=== PATIENT | female | born 1955 | race Caucasian/White ===

== ENCOUNTER 2018-12-28 09:08 | Inpatient (IN) | payer OTHER ==
[2018-12-28] VITALS (42 sets, daily range): BP systolic 61–109; BP diastolic 23–63
[~2018-12-28] VITALS: Ht 162.6 cm; Wt 88.1 kg
--- NOTE | ~2018-12-28 | CON ---
[address] [address] CONSULTATION Name: LAWRENCE JIMENEZ Room: [address] IN .R.#: [id number] Admission: 12/28/18 Attend Phys: Celia Rosen Discharge: Date of : 51 Report #: [id number] THIS REPORT FOR: //name// CC: DORETHA physician/PCP Annamarie Cevallos DATE OF SERVICE: 12/29/2018 REASON FOR CONSULTATION: Anemia and melanotic stool. HISTORY OF PRESENT ILLNESS: This is a 63-year-old female who presented to hospital with dizziness and low blood pressures. The patient recently has changed her blood pressure medications. She was found to be very anemic with hemoglobin of 7 and required 1 unit of packed RBC, which increases her hemoglobin to 8.4. The patient reports that her problems began when she fell and fractured her hip. Since then, she has had problem with constipation followed by diarrhea. She reports that her stool has been darkish brown, but denies any hematochezia. She also denies any nausea or vomiting, but reports that she occasionally takes TUMS for GERD type symptoms. PAST MEDICAL HISTORY: Significant for recent history of hip fracture, hypertension, hyperlipidemia, gallbladder disease, status post cholecystectomy at age 18, adhesiolysis, and hypotension. ALLERGIES: SIGNIFICANT TO PENICILLIN G AND CODEINE. MEDICATIONS: Please refer to MAR. SOCIAL HISTORY: The patient lives at home. She denies tobacco or alcohol use. FAMILY HISTORY: Noncontributory. PHYSICAL EXAMINATION: VITAL SIGNS: Reveals blood pressure of 118/62, respiration is 13, pulse 88, temperature 98.9. LUNGS: Clear. CARDIOVASCULAR: Regular. ABDOMEN: Soft, mildly tender to palpation in the lower quadrants. Bowel sounds are positive. NEUROLOGIC: The patient is alert and oriented x 3. Note that the patient is on pressors. LABORATORY DATA: Reveals sodium of 134, potassium 4.4, BUN is 50, creatinine is 3.3, glucose 143, total bilirubin is 1.1, magnesium is 1.2, ALT is 18. Iron saturation is 7, TIBC is 204. B12 is 2198. WBC is 24,000, hemoglobin is 8.4, platelet is 176. UA is positive [place] [address] CONSULTATION Name: LAWRENCE JIMENEZ Kyle Room: [address] IN [facility]#: [id number] Admission: 12/28/18 Attend Phys: Celia Rosen Discharge: Date of : 51 Report #: [id number] IMAGING: Renal ultrasound was obtained, which showed to be unremarkable. ASSESSMENT AND PLAN: The patient with hypotension, leukocytosis and sepsis, who is on antibiotics and pressors. She was found to be anemic and reports dark stool for the past several days. I will consider upper scope to rule out gastroduodenal ulcer. She has never had a colonoscopy; therefore, if her upper GI is negative, we will consider colonoscopy to follow. Meanwhile, we will continue her Protonix drip and monitor her hemoglobin and hematocrit. By: 1231 [id number] Zapata MD /nt
--- NOTE | ~2018-12-28 | PROC ---
[address] [address] PROCEDURE REPORT Name: LAWRENCE JIMENEZ Room: [address] IN .R.#: [id number] Admission: 12/28/18 Attend Phys: Celia Rosen Discharge: Date of : 51 Report #: [id number] THIS REPORT FOR: //name// For GI report, please see the Provation report in Perceptive 7 content. By: 0645Medical Records Staff GOMEZ /GRZEGORZ
[~2018-12-28 09:08] MED LIST: BACTRIM DS TAB1 EACH PO; BENADRYL25 MG PO; ELIMITE60 GM TP; LOPRESSOR25 PO; MUCINEX600 MG PO; TRIAMCINOLONE A80 G2 TOP
--- NOTE | 2018-12-28 09:45 | NUR ---
STRAIGHT CATH PT VIA STERILE PROCEDURE FOR STERILE UA SPECIMEN, PT HERMES WELL
[2018-12-28 09:46] LABS: HEMATOCRIT 21.5 % (37.0-47.0); MCH 27.1 pg (26.0-34.0); MCHC 32.5 g/dL (28.0-37.0); MCV 83.5 fL (80.0-100.0); NUCLEATED RBCS 0 /100WBC; PLATELET COUNT* 112 thou/uL (150-400); RBC 2.58 mil/uL (4.20-5.00); RDW-CV 19.2 % (10.5-14.5); WBC 2.9 thou/uL (4.0-11.0)
[2018-12-28 09:47] LABS: URINE BLOOD NEGATIVE (Negative); URINE CLARITY SL CLOUDY; URINE COLOR BROWN; URINE GLUCOSE-RANDOM NEGATIVE (Negative); URINE KETONES TRACE (Negative); URINE LEUKOCYTES-REFLEX TRACE (Negative); URINE NITRITE-REFLEX NEGATIVE (Negative); URINE PROTEIN 1+ (Negative); URINE SPECIFIC GRAVITY >= 1.030 (1.005-1.030); URINE UROBILINOGEN 0.2 E.U./dl (0.2-1.0)
[2018-12-28 09:50] LABS: APTT 33.6 Seconds (25.0-31.3); INR 1.5; PROTIME 14.8 Seconds (9.20-11.50)
[2018-12-28 09:51] LABS: ICTOTEST (BILI CONFIRMATORY) Negative (Negative); URINE BILIRUBIN 2+ (Negative)
[2018-12-28 09:53] LABS: CALCIUM 8.7 mg/dL (8.5-10.1); CREATININE 4.1 mg/dL (0.6-1.3); POTASSIUM 3.4 mmol/L (3.5-5.1)
[2018-12-28 09:59] LABS: ALBUMIN 2.2 g/dL (3.4-5.0); TOTAL BILIRUBIN 1.1 mg/dL (<0.1-1.0); TOTAL PROTEIN 7.3 g/dL (6.4-8.2)
[2018-12-28 10:06] LABS: SQUAMOUS >10 Many /LPF (0-3)
[2018-12-28 10:07] LABS: AMORPHOUS URATES Moderate /LPF (None Seen); BACTERIA-REFLEX 1-9 Few /HPF (None Seen); CASTS None Seen /LPF (None Seen); MUCUS 4-6 Moderate strn/LPF (None Seen); URINE RBC 0-2 Rare /HPF (0-2)
[2018-12-28 10:52] LABS: ABSOLUTE LYMPHOCYTES 0.1 thou/uL (0.8-5.3); ABSOLUTE MONOCYTES 0.2 thou/uL (0.0-1.2); ABSOLUTE NEUTROPHILS 2.7 thou/uL (1.6-8.1); PLATELET ESTIMATE DECREASED
[2018-12-28 10:53] LABS: ANISOCYTOSIS 1+; HYPOCHROMASIA 1+; OVALOCYTES 1+; POIKILOCYTOSIS 1+; TOXIC GRANULATION 1+
--- NOTE | 2018-12-28 11:46 | NUR ---
AT 1045 PICC TRIPLE LUMEN PLACED PER PICC TEAM, PT TOLERATED WELL
--- NOTE | 2018-12-28 12:08 | NUR ---
PT ADMITTED TO ICU BED 2. PT ON LEVOPHED GTT AT 9 MG/HR. PROTONIX GTT AT 8 MG/HR. PT AOX4, VSS ON LEVOPHED. BG 94.
--- NOTE | 2018-12-28 14:32 | NUR ---
RIGHT BASIILIC VESSEL ACCESSED FOR 5 [place] TRIPLE LU8MEN PICC. LINE PRE-TRIMMED TO 38CM AND ADVANCED TO THE ZERO FRED WITH NO RESISTANCE MET. UPPER ARM CIRCUMFERENCE ABOVE INERTION SITE = 11". SHERLOCK MAGNET AND 3CG CONFIRMATION OF TIP TERMINATION AT THE CAVOATRIAL JUNCTION APPRECIATED. STYLET REMOVED, LINE FLUSHED AND INSERTION SITE DRESSED. REPORT GIVEN TO ALICIA BAUTISTA.
--- NOTE | 2018-12-28 14:39 | NUR ---
PT C/O MIGRAINE, STATES SHE GETS MIGRAINES AT HOME QUITE OFTEN. PT REQUESTING SOMETHING FOR THIS WELL SOME BREATHING TREATMENTS FOR WHEEZING, STATES SHE USES INHALER AT HOME.
--- NOTE | 2018-12-28 15:52 | EKG ---
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: andrade : 1955 Requested By: Constantin Kellogg Order Number: [id number] MD: Umberto Bangura Measurements Intervals [place] Rate: 86 P: 24 ND: 113 QRS: 51 QRSD: 106 T: 41 QT: 379 QTc: 454 Interpretive Statements Sinus rhythm Borderline short ND interval Borderline ST elevation, lateral leads No previous ECG available for comparison Electronically Signed On 12-28-2018 15:51:46 GAS CHARGER by Umberto Bangura [email or web address] <ELECTRONICALLY SIGNED> By: Umberto Bangura MD, [facility] 12/28/18 1551 6 6 Umberto Bangura MD, FAC /EPI
[2018-12-28 17:02] LABS: URINE BLOOD NEGATIVE (Negative); URINE CLARITY CLOUDY; URINE COLOR DARK YELLOW; URINE GLUCOSE-RANDOM NEGATIVE (Negative); URINE KETONES TRACE (Negative); URINE LEUKOCYTES TRACE (Negative); URINE NITRITE POSITIVE (Negative); URINE PROTEIN 2+ (Negative); URINE SPECIFIC GRAVITY >= 1.030 (1.005-1.030); URINE UROBILINOGEN 0.2 E.U./dl (0.2-1.0)
[2018-12-28 17:04] LABS: ICTOTEST (BILI CONFIRMATORY) Negative (Negative); URINE BILIRUBIN 1+ (Negative)
[2018-12-28 17:06] LABS: SQUAMOUS >10 Many /LPF (0-3)
[2018-12-28 17:07] LABS: BACTERIA >30 Many /HPF (None Seen); HYALINE CASTS 4-10 Moderate /LPF (None Seen); MUCUS >6 Heavy strn/LPF (None Seen); URINE RBC None Seen /HPF (0-2); URINE WBC 0-5 Rare /HPF (0-5)
[2018-12-28 17:08] LABS: AMORPHOUS URATES Moderate /LPF (None Seen); CRYSTALS None Seen /LPF (None Seen)
[2018-12-28 18:30] LABS: HEMATOCRIT 23.6 % (37.0-47.0); HEMOGLOBIN 7.8 gm/dL (12.0-15.0)
[2018-12-29] VITALS (78 sets, daily range): BP systolic 89–142; BP diastolic 29–86
[2018-12-29 04:35] LABS: HEMATOCRIT 26.5 % (37.0-47.0); HEMOGLOBIN 8.4 gm/dL (12.0-15.0); MCH 26.5 pg (26.0-34.0); MCHC 31.6 g/dL (28.0-37.0); MPV 9.5 fl. (7.2-11.1); RBC 3.16 mil/uL (4.20-5.00); RDW-CV 18.5 % (10.5-14.5)
[2018-12-29 04:50] LABS: WBC 24.4 thou/uL (4.0-11.0)
[2018-12-29 05:14] LABS: ALBUMIN 1.8 g/dL (3.4-5.0); CREATININE 3.3 mg/dL (0.6-1.3); MAGNESIUM 1.2 mg/dL (1.8-2.4); TOTAL BILIRUBIN 1.1 mg/dL (<0.1-1.0); TOTAL PROTEIN 6.6 g/dL (6.4-8.2)
[2018-12-29 05:19] LABS: POTASSIUM 4.4 mmol/L (3.5-5.1)
--- NOTE | 2018-12-29 06:03 | NUR ---
VITALS STABLE, AFEBRILE. PT DENIES PAIN, SLEPT THROUGH MOST OF THE NIGHT. 250 CC, TEA COLORED UOP. NO BM THIS EVENING. ABLE TO TITRATE VASOPRESSIN OFF AND LEVOPHED DOWN TO 20 MCG/MIN. PT REMAINS ON 2L PER NC, MOSTLY FOR COMFORT. OTHERWISE UNEVENTFUL NIGHT. CALL LIGHT WITHIN REACH.
--- NOTE | 2018-12-29 17:59 | NUR ---
ASSESSMENTS CHARTED. PATIENT REMAINS ON LEVOPHED DURING SHIFT. CURRENTLY TITRATED DOWN TO 17. BP HOLDING STABLE. GI SAW PATIENT TODAY, EGD SCHEDULED FOR AM TO DETERMINE IF PATIENT IS HAVING GI BLEED. NO S/S OF BLEEDING EXHIBITED DURING THIS SHIFT. PATIENT IS EATING 100% OF ALL MEALS, WILL BE NPO AFTER MIDNIGHT. DISCUSSED WITH PATIENT AT BEDSIDE AND SHE IS AWARE AND AGREES TO THE PROCEDURE.
[2018-12-30] VITALS (23 sets, daily range): BP systolic 106–140; BP diastolic 49–76
[2018-12-30 03:47] LABS: HEMATOCRIT 23.2 % (37.0-47.0); HEMOGLOBIN 7.6 gm/dL (12.0-15.0); MCH 27.2 pg (26.0-34.0); MCHC 32.6 g/dL (28.0-37.0); MCV 83.6 fL (80.0-100.0); RBC 2.78 mil/uL (4.20-5.00); RDW-CV 18.9 % (10.5-14.5)
[2018-12-30 04:22] LABS: WBC 9.3 thou/uL (4.0-11.0)
[2018-12-30 04:52] LABS: ALBUMIN 1.5 g/dL (3.4-5.0); CALCIUM 7.8 mg/dL (8.5-10.1); CREATININE 2.2 mg/dL (0.6-1.3); MAGNESIUM 1.6 mg/dL (1.8-2.4); POTASSIUM 3.2 mmol/L (3.5-5.1); TOTAL BILIRUBIN 0.6 mg/dL (<0.1-1.0); TOTAL PROTEIN 6.2 g/dL (6.4-8.2)
--- NOTE | 2018-12-30 04:56 | NUR ---
VITALS STABLE, AFEBRILE. PT SLEPT ON AND OFF THROUGH THE NIGHT. COMPLAINS OF ABDOMINAL PAIN AND HEADACHE. NO BM, UOP 900 CC. NPO AFTER MIDNIGHT. PT COMPLAINS OF LEFT ANKLE/LEG PAIN, REPORTS SHE FELL ON IT WHEN SHE FELL IN SEPTEMBER BUT HAS SINCE GOTTEN AN XRAY OF IT AND IT WAS OK. PASSIVE RANGE OF MOTION PROVIDED, BUT PATIENT IN PAIN AND UNABLE TO BEND HER LEG WITHOUT PAIN. ABLE TO MOVE RIGHT LEG WITH NO PROBLEM. SCD TAKEN OFF LEFT LEG PER HER REQUEST, WILL PASS THIS INFORMATION ALONG AND FOLLOW UP WITH THE PROVIDER. OTHERWISE UNEVENTFUL NIGHT. FREQUENT TURNS FOR SKIN INTEGRITY. CALL LIGHT WITHIN REACH.
[2018-12-30 08:23] LABS: HEMATOCRIT 20.8 % (37.0-47.0); MCH 27.4 pg (26.0-34.0); MCHC 33.1 g/dL (28.0-37.0); MCV 82.9 fL (80.0-100.0); MPV 8.4 fl. (7.2-11.1); RBC 2.51 mil/uL (4.20-5.00); RDW-CV 18.5 % (10.5-14.5); WBC 5.5 thou/uL (4.0-11.0)
[2018-12-30 08:34] LABS: HEMOGLOBIN 6.9 gm/dL (12.0-15.0)
--- NOTE | 2018-12-30 09:42 | NUR ---
patient off unit to GI lab for EGD at 0942.
[2018-12-30 09:44] LABS: HEMATOCRIT 20.8 % (37.0-47.0); MCH 27.4 pg (26.0-34.0); MCHC 32.8 g/dL (28.0-37.0); MCV 83.5 fL (80.0-100.0); MPV 9.5 fl. (7.2-11.1); RBC 2.49 mil/uL (4.20-5.00); RDW-CV 18.7 % (10.5-14.5)
[2018-12-30 09:46] LABS: HEMOGLOBIN 6.8 gm/dL (12.0-15.0); PLATELET COUNT* 46 thou/uL (150-400)
[2018-12-30 12:30] LABS: ALBUMIN 1.4 g/dL (3.4-5.0); DIRECT BILIRUBIN 0.4 mg/dL (<0.1-0.3); TOTAL BILIRUBIN 0.6 mg/dL (<0.1-1.0)
--- NOTE | 2018-12-30 14:09 | CON ---
[address] [address] CONSULTATION Name: LAWRENCE JIMENEZ Room: [address] IN .R.#: [id number] Admission: 12/28/18 Attend Phys: Celia Rosen Discharge: Date of : 51 Report #: [id number] THIS REPORT FOR: //name// CC: DORETHA physician/PCP Annamarie Cevallos DATE OF SERVICE: 12/29/2018 CONSULTING PHYSICIAN: Dr. Cevallos REASON FOR CONSULTATION: Acute kidney injury. HISTORY OF PRESENT ILLNESS: This is a 63-year-old female with no preexisting history of kidney disease, who was admitted with low blood pressure and sepsis. She was started on pressors and given IV fluids. She was found to be anemic and was transfused a unit of packed red blood cells. She is feeling better now. She does not have any complaints at present time. She does tell me that she takes regular NSAIDs. She is also on lisinopril and hydrochlorothiazide as well. REVIEW OF SYSTEMS: Constitutional, psych, heme, eyes, ENT, respiratory, cardiac, GI, , and endocrine are all negative except as documented above. SOCIAL HISTORY: Positive for tobacco use. FAMILY HISTORY: Sister had kidney problems. CURRENT MEDICATIONS: Reviewed. PAST MEDICAL HISTORY: Hypertension, dyslipidemia, and history of cholecystectomy. PHYSICAL EXAMINATION: VITAL SIGNS: Blood pressure 118/62, pulse 88, respirations 13, and temperature 37.2. GENERAL: No acute distress. EYES: Open. EARS: Externally normal. NECK: Supple. CARDIOVASCULAR: Regular rate. LUNGS: No crackles. ABDOMEN: Soft. MUSCULOSKELETAL: Nontender. PSYCHIATRIC: Awake and alert. LABORATORY DATA: White cell count 24, hemoglobin 8.4, and [place] [address] CONSULTATION Name: LAWRENCE JIMENEZ Room: [address] IN [facility]#: [id number] Admission: 12/28/18 Attend Phys: Celia Rosen Discharge: Date of : 51 Report #: [id number] Sodium 134, potassium 4.4, chloride 104, bicarbonate 20, BUN 50, creatinine 3.3, glucose 143, calcium 8, magnesium 1.2, and albumin 1.8. ASSESSMENT: 1. Acute kidney injury in the setting of hypotension, anemia, and a creatinine of 4.1 on admission. Baseline creatinine unknown. UA noted. Ultrasound, no acute findings. She was on Bactrim as an outpatient. This is also in the setting of sepsis. 2. Hypoalbuminemia with an albumin of 1.8. 3. Anemia with a concern for gastrointestinal bleed. Hemoglobin was 7 on admission. She was transfused one unit of packed red blood cells on 12/28/2018. 4. Shock. PLAN: 1. Creatinine is improving. Continue supportive measures including IV fluids and Levophed. 2. Hypomagnesemia. Magnesium was given earlier. 3. UA was noted. Kidney ultrasound did not reveal any acute findings. I expect that renal function will continue to improve but baseline is uncertain. Lisinopril, hydrochlorothiazide, and NSAIDs have all been stopped. We will check lab again in the a.m. and follow along with you. Thank you for requesting my opinion in the care and management of this patient. <ELECTRONICALLY SIGNED> By: Montana Marrero MD 12/30/18 1409 1423 1850Montana Marrero MD /nt
[2018-12-30 15:42] LABS: % SATURATION 11 % (20-39); IRON 19 ug/dL (50-175)
[2018-12-30 15:50] LABS: APTT 32.8 Seconds (25.0-31.3)
[2018-12-30 16:09] LABS: ABSOLUTE EOSINOPHILS 0.2 thou/uL (0.0-0.7); ABSOLUTE LYMPHOCYTES 0.2 thou/uL (0.8-5.3); ABSOLUTE MONOCYTES 0.3 thou/uL (0.0-1.2); ABSOLUTE NEUTROPHILS 4.4 thou/uL (1.6-8.1)
[2018-12-30 16:23] LABS: ANISOCYTOSIS 1+; HYPOCHROMASIA 1+; PLATELET ESTIMATE DECREASED; POIKILOCYTOSIS Occasional
[2018-12-30 16:24] LABS: BURR CELLS Occasional; OVALOCYTES Occasional; TARGET CELLS Occasional; TEARDROPS Occasional
[2018-12-30 16:25] LABS: TOXIC GRANULATION 2+
[2018-12-30 16:38] LABS: HEMATOCRIT 23.7 % (37.0-47.0); MCH 28.2 pg (26.0-34.0); MCHC 33.8 g/dL (28.0-37.0); MCV 83.6 fL (80.0-100.0); MPV 9.2 fl. (7.2-11.1); RBC 2.83 mil/uL (4.20-5.00); RDW-CV 18.5 % (10.5-14.5); WBC 6.9 thou/uL (4.0-11.0)
[2018-12-30 16:41] LABS: POTASSIUM 3.5 mmol/L (3.5-5.1)
[2018-12-30 16:44] LABS: INR 1.2; PROTIME 12.7 Seconds (9.20-11.50)
--- NOTE | 2018-12-30 17:50 | NUR ---
ASSESSMENTS CHARTED. PATIENT RECEIVED 1 UNIT OF PACKED RED BLOOD CELLS DURING SHIFT FOR DROPPING HEMOGLOBIN. REPEAT BLOODWORK SHOWS IMPROVEMENT. PATIENT WENT FOR EGD THIS MORNING, RESULTS FROM DR WAITE SHOWS ULCERS AND ESOPHAGEAL VARICIES. PATIENT SCHEDULED TO HAVE ABDOMINAL ULTRASOUND IN THE MORNING. ELECTROLYTES REPLACED TO NORMAL VALUES TODAY. PATIENT TAKING IN LIQUID DIET WELL TOLERATED. WCTM
[2018-12-31] VITALS (17 sets, daily range): BP systolic 118–148; BP diastolic 44–73
[2018-12-31 04:48] LABS: ABSOLUTE EOSINOPHILS 0.2 thou/uL (0.0-0.7); ABSOLUTE LYMPHOCYTES 0.2 thou/uL (0.8-5.3); ABSOLUTE MONOCYTES 0.6 thou/uL (0.0-1.2); ABSOLUTE NEUTROPHILS 6.1 thou/uL (1.6-8.1); BASOPHILS 0.1 %; EOSINOPHILS 2.6 %; HEMATOCRIT 24.2 % (37.0-47.0); HEMOGLOBIN 8.2 gm/dL (12.0-15.0); LYMPHOCYTES 3.2 %; MCH 27.9 pg (26.0-34.0); MCHC 33.7 g/dL (28.0-37.0); MCV 82.6 fL (80.0-100.0); MONOCYTES 8.3 %; MPV 9.2 fl. (7.2-11.1); NUCLEATED RBCS 0 /100WBC; PLATELET COUNT* 52 thou/uL (150-400); POLYS 85.8 %; RBC 2.93 mil/uL (4.20-5.00); RDW-CV 18.6 % (10.5-14.5); WBC 7.1 thou/uL (4.0-11.0)
[2018-12-31 05:23] LABS: ALBUMIN 1.4 g/dL (3.4-5.0); CALCIUM 8.2 mg/dL (8.5-10.1); CREATININE 1.5 mg/dL (0.6-1.3); MAGNESIUM 1.7 mg/dL (1.8-2.4); POTASSIUM 3.6 mmol/L (3.5-5.1); TOTAL PROTEIN 6.3 g/dL (6.4-8.2)
--- NOTE | 2018-12-31 05:55 | NUR ---
ASSUMED CARE AT 1900H, ON RA AND TOLERATED.NO DISTRESS NOTED.KEPT NPO POST MIDNIGHT FOR LADARIUS.PT IS HALF PACK OF CIGARETTE A ADAY SMOKER AND ADVICE TO QUIT SMOKING AND USE NICOTINE PATCH.SHE AGREED FOR THE NICOTINE PATCH, TO INFORM HOSPITALIST.NO BLEEDING NOTED.LEVO OFF SINCE YESTERDAY AND NO MORE PRESSOR, BP WITHIN NORMAL LIMITS.CONTINUE MONITORING AND TOWARDS GOALS.
[2018-12-31 11:10] LABS: HEMOGLOBIN 6.9 g/dL (11.1-15.9)
--- NOTE | 2018-12-31 13:18 | NUR ---
ICU rounds: Jonna. Picc. Tele status. Pt resides at home with her . Independent with ADLs, completes IADLs. Pt uses a walker for mobility. Has neb. No hx of HH or SNF. Pt states that she should qualify for Medicare, but has yet to apply, Pt reports the same situation for her . Per , anticipate dc within the next few days.
--- NOTE | 2018-12-31 16:13 | NUR ---
VSS.FUTURES TRADER IN PLACE WITH NO CHANGES.PT IS A/O X4.PT DOWNGRADED TO TELEMETRY STATUS.NO C/O PAIN.IV SECURE,PATENT, AND SALINE LOCKED.IV ANTIBIOTICS GIVEN. LASIX GIVEN.ABDOMINAL ULTRASOUND COMPLETED .PT TOLERATING FULL LIQUID DIET.PT WORKED WITH PT AND OT.PT INFORMED OF PLAN OF CARE AND COMMUNICATES UNDERSTANDING.HOURLY ROUNDING COMPLETED.Q2 HOUR POSITION CHANGES COMPLETED.PT LEFT RESTING WITH CALL LIGHT AND FALL PRECAUTIONS IN PLACE.WILL CONTINUE TO MONITOR FOR DURATION OF SHIFT.
--- NOTE | 2018-12-31 18:16 | NUR ---
REPORT CALLED TO GENNARO ON TELE AND PT TO TRANSFER TO ROOM 218.
[2019-01-01] VITALS (7 sets, daily range): BP systolic 118–152; BP diastolic 53–79
--- NOTE | 2019-01-01 04:17 | NUR ---
ASSUMED CARE OF PT AT 1900. PT IS ALERT AND ORIENTED. VSS. PERRLA. NO COMPLAINTS OF PAIN. PT HAS A MARY IN PLACE. PT IS IN SINUS RYTHM ON THE TELEMETRY. PT IS SLEEPING QUIETLY IN BED. RESPIRATIONS ARE EVEN AND NONLABORED. WILL CONTINUE TO MONITOR PT.
[2019-01-01 09:03] LABS: HEMATOCRIT 23.8 % (37.0-47.0); MCH 27.9 pg (26.0-34.0); MCHC 33.8 g/dL (28.0-37.0); MCV 82.5 fL (80.0-100.0); MPV 9.4 fl. (7.2-11.1); RBC 2.89 mil/uL (4.20-5.00); RDW-CV 18.8 % (10.5-14.5); WBC 8.8 thou/uL (4.0-11.0)
[2019-01-01 09:05] LABS: CALCIUM 8.2 mg/dL (8.5-10.1); CREATININE 1.1 mg/dL (0.6-1.3)
[2019-01-01 09:10] LABS: HEPATITIS B SURFACE AG Negative (Negative)
[2019-01-01 09:12] LABS: POTASSIUM 2.9 mmol/L (3.5-5.1)
--- NOTE | 2019-01-01 09:16 | CON ---
[address] [address] CONSULTATION Name: LAWRENCE JIMENEZ Room: [address] IN .R.#: [id number] Admission: 12/28/18 Attend Phys: Celia Rosen Discharge: Date of : 51 Report #: [id number] THIS REPORT FOR: //name// CC: DORETHA physician/PCP Annamarie Cevallos DATE OF SERVICE: 12/30/2018 REASON FOR CONSULTATION: Anemia, thrombocytopenia. SUBJECTIVE: This 63-year-old female who has been evaluated due to low blood pressure. She reported prior to admission she has been taking NSAIDs like Advil. She reported that in addition to that black stool upon evaluation at the Emergency Room, she was found to have hemoglobin of 7. She received 2 units of PRBC so far. She required supportive vasopressors. Most recently, her hemoglobin to this morning was 6.9. She is finishing with her second units of PRBC. Platelet count start dropping from 112-46 today. Since she has been in the Intensive Care Unit, there is no black stool or melena has been reported. The patient underwent an EGD this morning, which showed grade 2 esophageal varices, nonbleeding gastric ulcer, which was biopsied, one duodenal ulcer, which was also biopsied. She has been started on Protonix and sucralfate by GI. REVIEW OF SYSTEMS: All systems were reviewed. It was negative except the above. PAST MEDICAL HISTORY: Hypertension, dyslipidemia. PAST SURGICAL HISTORY: Cholecystectomy, pelvic fracture, lysis of adhesions. MEDICATIONS: Per admission list. ALLERGIES: CODEINE AND PENICILLIN. FAMILY HISTORY: Noncontributory. SOCIAL HISTORY: She is an everyday smoker, around 1 pack per day. She drinks alcohol on a daily basis. PHYSICAL EXAMINATION: VITAL SIGNS: Today, temperature is 37.2, pulse is 88, respirations 13 and blood pressure today is 106/60, SpO2 was 98% on room air. GENERAL: The patient was lying in bed. She was not in acute distress. LUNGS: Clear to auscultations bilaterally. HEART: Regular rate and rhythm. S1, S2 within normal limits. ABDOMEN: Soft, nontender, nondistended, bowel sounds positive. EXTREMITIES: No edema, no cyanosis, [place] [address] CONSULTATION Name: LAWRENCE JIMENEZ Room: [address]#: [id number] Admission: 12/28/18 Attend Phys: Celia Rosen Discharge: Date of : 51 Report #: [id number] LABORATORY DATA: Today, WBC 5.0, hemoglobin 6.8, MCV 83.5, platelets dropped to 46. Differential showed +1 toxic granulations. ESR elevated at 65. PT was 14.8, PTT 36.6. Creatinine 2.2; however, it has been dropping from 4.1, calcium 7.8, bilirubin is 0.6, AST 21, ALT is 13. Folate 1.6. ASSESSMENT AND PLAN: A 63-year-old female who was admitted because of hypotensive acute renal failure requiring vasopressors due to gastrointestinal bleed. EGD showed grade 2 esophageal varices with gastric and duodenal ulcers. The patient received 2 units of PRBC. The abnormalities in her CBC and mild elevation in coagulation studies most likely related to coagulopathy in the process of GI bleed and transfusion. I do not believe that we were dealing with microangiopathic hemolytic anemia at this point. RECOMMENDATIONS: 1. Supported with transfusion to keep hemoglobin above 8. Also, monitor her platelet count. She will need a platelet transfusion if her platelet count below 20. In addition to that, I would like to obtain peripheral blood smear, LDH, retic count. 2. Replace folate. We will monitor the patient during hospitalization. <ELECTRONICALLY SIGNED> By: Jorge Mendez MD 01/01/19 0916 1423 21Jorge Mendez MD /nt
--- NOTE | 2019-01-01 16:22 | NUR ---
WOUND CARE NOTE: CONSULT RECEIVED FOR [place] THIGHS AND BUTTOCK. PATIENT STATES SHE HAD BEEN USING A HEATING PAD TO HER 'BUTT', HAD MOVED IT ONTO HER LAP THEN FELL ASLEEP. BILATERAL MEDIAL UPPER THIGHS AND RIGHT BUTTOCK HAVE WHAT APPEARS TO BE SECOND DEGREE [place]. THE LEFT MEDIAL THIGH EXTENDS POSTERIORLY TO BEHIND HER KNEE. ADDITIONALLY, SHE HAS SEVERAL SMALL BLISTERED AREAS TO HER BUTTOCKS. BELIEVE APPROXIMATELY 9% OF HER BODY HAS SECOND DEGREE [place]. RIGHT BUTTOCK: RUPTURED BLISTER MEASURES 3.5X2X0.1. MOIST, PINK WOUND BED. COVERED WITH MULTIPLE LAYERS OF VASELINE GAUZE AND SECURED WITH A BORDERED GAUZE. RIGHT MEDIAL THIGH: SEROUS FILLED BLISTERS AND RUPTURED SEROUS BLISTERS PRESENT. SONYA-WOUND IS EDEMATOUS, RED. GENTLY CLEANSED WITH SOAP AND WATER. APPLIED VASELINE. LEFT MEDIAL THIGH EXTENDING POSTERIORLY BEHIND KNEE: INTACT SEROUS FILLED BLISTERS. SONYA-WOUND IS EDEMATOUS, RED. GENTLY CLEANSED WITH SOAP AND WATER. APPLIED VASELINE. THIS LEG WITH 2-3+ PITTING EDEMA, BUT HAS 2+ PEDAL PULSES. PATIENT ADMITS TO 'HITTING HARD' WHEN SHE FELL. ALL AREAS ARE EXTREMELY TENDER. RECOMMEND ENCOURAGE GOOD NUTRTION/HYDRATION WILL NEED TO FOLLOW UP IN THE WOUND CENTER
--- NOTE | 2019-01-01 19:58 | NUR ---
ASSUEMD PT CARE AT 0730, FULL ASSESMENT DONE CHARTED. PT A/O X4, C/O HIP/BACK LEG PAIN, PT DENIES NEED FOR PAIN MEDS. PT UP TO CHIAR THIS AM, UNABLE TO TOLERATE MORE THAN 45 MIN. PTS MARY IN PLACE DRAINING YELLOW URINE, BLISTERS TO INNER THIGHS AND BUTTOCK ADDRESSED BY WOUND CARE. PT HAS POOR APITITE, ENCOURAGED TO CHANGE MEALS, REFUSES. FALL PRECAUTIONS IN PLACE, USES CALL LIGHT APPROPRIALTY. REPORT GIVEN TO GILLES BAUTISTA
[2019-01-02 04:00] VITALS: BP 137/67
--- NOTE | 2019-01-02 04:10 | NUR ---
Pt A/O x4. Breathing is slightly labored, but even. Pt has reported pain several times throughout night. Pain treated with medication. Pt reports no other compliants at this time. Will continue to monitor.
[2019-01-02 05:41] LABS: HEMATOCRIT 24.2 % (37.0-47.0); HEMOGLOBIN 7.9 gm/dL (12.0-15.0); MCH 27.1 pg (26.0-34.0); MCHC 32.6 g/dL (28.0-37.0); RBC 2.92 mil/uL (4.20-5.00); RDW-CV 19.3 % (10.5-14.5); WBC 13.8 thou/uL (4.0-11.0)
[2019-01-02 05:52] LABS: ALBUMIN 1.4 g/dL (3.4-5.0); CALCIUM 8.4 mg/dL (8.5-10.1); MAGNESIUM 1.6 mg/dL (1.8-2.4); POTASSIUM 3.8 mmol/L (3.5-5.1); TOTAL PROTEIN 6.9 g/dL (6.4-8.2)
[2019-01-02 08:11] VITALS: BP 143/58
--- NOTE | 2019-01-02 09:00 | NUR ---
ASSUMED CARE OF PT THIS AM AROUND 0715- EASTER BUNNY IN PLACE ORDERED, TRACING SR- UPON ASSESSMENT PT NOTED TO BE RESTING IN BED- PT A&O X4-MARY IN PLACE D/D CLEAR YELLOW URINE, CONTINENT OF BOWEL- LCTA/DIMINISHED IN BASES- RESP EVEN AND UN-LABORED- VSS, O2 SAT 94% ON RA- ABD SOFT/ROUND/NON-TENDER, BS X4 QUADS- LAST BM REPORTED 01/01/19- RUE TRIPLE LUMEN PICC NOTED C/D/I, IV ABT INFUSSING THIS AM PRESCIBED- RIGHT INNER THIGHS NOTED WITH LUIS F, DRESSING NOTED C/D/I TO RIGHT INNER THIGH, MARISABEL IN PLACE INDICATED- FAIR PO INTAKE NOTED THIS BREAKFAST- CALL LIGHT AND PERSONAL BELONGINGS WITH IN REACH- HOURLY ROUNDS IN PLACE R/T SAFETY/NEEDS-ALL NEEDS MET AT THIS TIME-WCTM
[2019-01-02 11:54] VITALS: BP 124/63
--- NOTE | 2019-01-02 13:07 | PATH ---
[address] [address] PATHOLOGY RPT PROCEDURE Name: COLLETTE JIMENEZ Room: [address] IN [facility]#: [id number] Admission: 12/28/18 Date of : 51 Discharge: Report #: [id number] Path Case #: [id number] [facility] Accession Number: [id number] . 01 Material submitted: . PART A: stomach - ANTRAL PYLORIC ULCER BIOPSY PART B: duodenum - DUODENAL BIOPSY FOR DUODENAL ULCER . 01 Clinical history: . Candelario's esophagus . 02 Diagnosis: A. Antral pyloric ulcer biopsy: - Severe active antral gastritis suggesting reactive gastropathy (chemical gastritis), with mild fibrosis, negative for Helicobacter pylori organisms, granulomas and dysplasia. . B. Duodenal biopsy for duodenal ulcer: - Moderate nonspecific active duodenitis, negative for granulomas and dysplasia. . (ONDINA:octaviano; 01/02/2019) . Special stain on A: H. pylori immuno MBR 01/02/2019 1035 Local . 02 Electronically signed: . Jeanmarie Osei MD, Pathologist NPI- [id number] . 01 Gross description: . A. The specimen is received in formalin, labeled "Collette Jimenez, antral pyloric ulcer biopsy". Received are two segments of pale javier soft tissue ranging in size from 0.4 to 0.7 cm in maximum dimensions. The specimen is submitted entirely in cassette A1. . B. The specimen is received in formalin, labeled "Collette Danielito, duodenal biopsy for duodenal ulcer". Received are two segments of pale javier soft tissue measuring 0.4 cm each in maximum dimensions. The specimen is submitted entirely in cassette B1. (CAA; 01/01/2019) QAC/QAC 01/02/2019 1032 Local . 02 Pathologist provided ICD-10: K29.50, K29.80 . 02 CPT . 439954, [id number], [id number] [place] [address] PATHOLOGY RPT PROCEDURE Name: COLLETTE JIMENEZ Room: [address] IN [facility]#: [id number] Admission: 12/28/18 Date of : 51 Discharge: Report #: [id number] Path Case #: [id number] Specimen Comment: A courtesy copy of this report has been sent to [phone] Specimen Comment: [phone] Specimen Comment: Report sent to / DR GLASGOW Performed at: [address], [place], [place] [address] MD Dakotah Gomez MD Phone: [phone] Performed at: 02 [facility] [address], [place], [place] [id number] MD Jeanmarie Osei MD Phone: [phone]
[2019-01-02 16:00] VITALS: BP 112/57
--- NOTE | 2019-01-02 16:04 | NUR ---
REPORT RECEIVED FROM MICHELE SALGADO. THIS RN AGREES WITH PREVIOUS WOOL GROWER. NO ACUTE CHANGES THROUGHOUT AFTERNOON. TYRA SHIELDS'Alejo AROUND 1600. PT PLACED IN CONTACT ISOLATION FOR ESBL IN URINE. MEDICATIONS PER APR. PT REPOSITIONS SELF WITH REMINDERS. HOURLY ROUNDING OBSERVED. BED IN LOW POSITION. CALL LIGHT WITHIN REACH. WILL CONTINUE PLAN OF CARE.
[2019-01-02 19:15] VITALS: BP 142/61
--- NOTE | 2019-01-02 23:07 | NUR ---
Pt assessment timestamped incorrectly at 1715 instead of 1915.
[2019-01-03] VITALS: BP 127/63
[2019-01-03 04:00] VITALS: BP 127/61
[2019-01-03 05:45] LABS: HEMATOCRIT 25.8 % (37.0-47.0); HEMOGLOBIN 8.3 gm/dL (12.0-15.0); MCH 26.7 pg (26.0-34.0); MCV 83.4 fL (80.0-100.0); MPV 9.5 fl. (7.2-11.1); RBC 3.09 mil/uL (4.20-5.00); RDW-CV 19.6 % (10.5-14.5); WBC 17.9 thou/uL (4.0-11.0)
[2019-01-03 05:57] LABS: ALBUMIN 1.5 g/dL (3.4-5.0); CALCIUM 8.3 mg/dL (8.5-10.1); CREATININE 0.9 mg/dL (0.6-1.3); MAGNESIUM 1.8 mg/dL (1.8-2.4); POTASSIUM 3.5 mmol/L (3.5-5.1); TOTAL BILIRUBIN 0.9 mg/dL (<0.1-1.0); TOTAL PROTEIN 7.2 g/dL (6.4-8.2)
[2019-01-03 08:00] VITALS: BP 122/59
[2019-01-03 10:08] LABS: HCV QUANT BY PCR 781000 IU/mL (())
[2019-01-03 11:45] VITALS: BP 129/61
[2019-01-03 16:38] VITALS: BP 130/64
--- NOTE | 2019-01-03 17:21 | NUR ---
PER MAYURI/SAMANTHA, PT.FILLED OUT APPLICATION FOR MEDICARE AND MAYURI FILED IT ON 01/01.
[2019-01-03 20:00] VITALS: BP 116/64
--- NOTE | 2019-01-03 20:00 | NUR ---
RECEIVED REPORT AND ASSUMED CARE OF PT, ASSESSMENT COMPLETED. PT PLEASANT AND COOPERATIVE. WINSOME INNER THIGHS AND BUTTOCKS NOTED TO HAVE HEALING [place]. ASSIST WITH REPOSITIONING. TELEMETRY ON SHOWING SR. WILL CONT TO MONITOR AND ASSIST NEEDED.
[2019-01-04] VITALS (8 sets, daily range): BP systolic 106–150; BP diastolic 57–70
[2019-01-04 04:47] LABS: HEMATOCRIT 25.3 % (37.0-47.0); HEMOGLOBIN 8.1 gm/dL (12.0-15.0); MCH 26.8 pg (26.0-34.0); MCHC 31.9 g/dL (28.0-37.0); MPV 9.8 fl. (7.2-11.1); RBC 3.01 mil/uL (4.20-5.00); RDW-CV 19.7 % (10.5-14.5); WBC 16.5 thou/uL (4.0-11.0)
[2019-01-04 04:50] LABS: CALCIUM 8.4 mg/dL (8.5-10.1); CREATININE 0.8 mg/dL (0.6-1.3); POTASSIUM 3.3 mmol/L (3.5-5.1)
--- NOTE | 2019-01-04 07:02 | NUR ---
SLEPT WELL TONIGHT. AWAKE TO USE BEDPAN. GENERALIZED EDEMA TO BUTTOCKS AND WINSOME LEGS NOTED. K+ 3.3, RECEIVING SUPPLIMENT. NO CHANGE IN ASSESSMENT. HS GOALS OF REST AND SAFETY ACHIEVED. HOURLY ROUNDING OBSERVED.
--- NOTE | 2019-01-04 07:10 | NUR ---
CHANGE OF SHIFT BEDSIDE REPORT GIVEN PATIENT SEEN AT BEDSIDE, IN BED ASLEEP ASSUMED PATIENT CARE
--- NOTE | 2019-01-04 11:54 | NUR ---
Following for d/c planning needs. Pt said she is working, and did not apply for Medicare. Pt said in the past she has received her Social Security paycheck, but stop receiving when she returned to work. Explained to patient that she is able to received both her Social Security check and work. Encouraged patient to speak with someone at Social Security office. Also asked about applying for Medicare. She said she received all kinds of mail and paperwork re: Medicare, but did not respond. Pt said she does not have insurance through her employer. Pt said her is 53 and applied for Social Security disability, but was denied. She said he did not appeal denial. Spouse is not working and does not have insurance. Pt apparently completed paperwork for Medicare through [facility].
--- NOTE | 2019-01-04 20:00 | NUR ---
RECEIVED REPORT AND ASSUMED CARE OF PT, ASSESSEMENT COMPLETED. VOIDING PER BEDPAN IN AMTS. [place] NOTED TO WINSOME INNER THIGHS AND BUTTOCKS IN VARIES STAGES OF HEALING. WINSOME LEGS WITH 2+EDEMA. TELEMETRY ON SHOWING SR. WILL CONT TO MONITOR AND ASSIST NEEDED.
[2019-01-05 04:00] VITALS: BP 122/66
--- NOTE | 2019-01-05 06:59 | NUR ---
AWAKE FREQ TONIGHT. ASSISTED ON AND OFF BEDPAN. PERIAREA RED FROM CONSTANT MOISTURE. NO CHANGE IN ASSESSMENT. TELEMETRY CONT TO SHOW SR. HS GOALS OF REST AND SAFETY ACHIEVED. HOURLY ROUNDING OBSERVED.
[2019-01-05 08:00] VITALS: BP 145/63
[2019-01-05 11:30] VITALS: BP 128/61
[2019-01-05 16:00] VITALS: BP 139/62
--- NOTE | 2019-01-05 16:22 | NUR ---
PT A/O. TELE TRACKING SR AND ALL VSS ON ROOM AIR. DENIES CP, SOA. DOES HAVE SOME BILAT LEG PAIN- MEDICATED PER EMAR. RIGHT THIGH WITH SEROUS TO PURULENT DRAINAGE- CULTURED AND DRESSING CHANGED. PT DID HAVE BM TODAY. Q2 TURNS. EDUCATED ON SAFETY AND PLAN OF CARE. PLEASE SEE ASSESSMENT FOR ADDITIONAL INFORMATION. WILL CONT LEYDI
[2019-01-05 21:00] VITALS: BP 127/61
[2019-01-05 23:45] VITALS: BP 148/65
[2019-01-06 03:55] VITALS: BP 152/75
--- NOTE | 2019-01-06 06:49 | NUR ---
PATIENT HAS WELL THROUGHOUT MOST OF THE NIGHT. VSS ON RA. NO C/O PAIN. SR ON MONITOR. PATIENT REPOSITIONED EVERY 2HRS AND PRN. DRESSING TO RIGHT THIGHT IS C/D/I. DRESSING APPLIED TO RIGHT BUTTOCK AND IS C/D/I. TRIPLE LUMEN PICC TO RIGHT ARM-SL. PATIENT REMAINS IN CONTACT ISOLATION. FALL PRECAUTIONS IN PLACE AND HOURLY ROUNDS MADE. PATIENT INSTRUCTED TO USE CALL LIGHT WHEN NEEDING ASSISTANCE. WILL CONTINUE WITH PLAN OF CARE AND NURSING TO MONITOR.
[2019-01-06 08:30] VITALS: BP 146/81
[2019-01-06 16:13] VITALS: BP 134/55
--- NOTE | 2019-01-06 16:45 | NUR ---
I ASSUMED CARE OF THE PATIENT AT 0700. SHE IS ALERT AND ORIENTED X4 AND IS UP WITH ASSIST OF 1 AND A WALKER. BED IS IN THE LOW LOCKED POSITION AND CALL LIGHT IS IN REACH. HOURLY ROUNDING IS COMPLETE AND PATIENT NEEDS ARE MET. PAIN IS MANAGED WITH PRN MEDS. PATIENT HAD A COMPLETE SHOWER AND A LINEN CHANGE. SHE IS PROGRESSING TOWARD HER GOALS. WILL CONTINUE TO MONITOR. VITAL SIGNS ARE STABLE. ISOLATION IS MAINTAINED. 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 THERAPY BELIEVES THAT SHE WILL MAKE A GOOD REHAB CANDIDATE.
[2019-01-06 21:51] VITALS: BP 125/50
[2019-01-07] VITALS: BP 117/53
[2019-01-07 04:00] VITALS: BP 121/71; BP 123/55
--- NOTE | 2019-01-07 04:56 | NUR ---
PATIENT HAS SLEPT WELL THROUGHOUT MOST OF THE NIGHT. VSS ON RA. NO C/O PAIN. PATIENT USES BEDPAN DURING THE NIGHT. PATIENT REMAINS ON CONTACT ISOLATION. TRIPLE LUMEN PICC TO RIGHT ARM-SL. SINUS RHYTHM ON TELE MONITOR. DRESSINGS TO RIGHT THIGHT AND RIGHT BUTTOCKS ARE C/D/I. PATIENT INSTRUCTED TO USE CALL LIGHT WHEN NEEDING ASSISTANCE. HOURLY ROUNDS MADE. WILL CONTINUE WITH PLAN OF CARE AND NURSING TO MONITOR.
[2019-01-07 05:23] LABS: HEMATOCRIT 22.7 % (37.0-47.0); HEMOGLOBIN 7.5 gm/dL (12.0-15.0); MCH 27.5 pg (26.0-34.0); MCHC 32.9 g/dL (28.0-37.0); MCV 83.6 fL (80.0-100.0); MPV 9.2 fl. (7.2-11.1); RBC 2.72 mil/uL (4.20-5.00); RDW-CV 20.1 % (10.5-14.5); WBC 8.4 thou/uL (4.0-11.0)
[2019-01-07 05:39] LABS: CALCIUM 8.2 mg/dL (8.5-10.1); CREATININE 0.7 mg/dL (0.6-1.3)
[2019-01-07 08:00] VITALS: BP 116/68
[2019-01-07] MEDS ORDERED: OMEPRAZOLE40 MG PO (08:47)
[2019-01-07] MEDS ORDERED: REMERON15 MG PO (08:47)
[2019-01-07] MEDS ORDERED: AUGMENTIN 875-1 EACH PO (08:47)
--- NOTE | 2019-01-07 11:03 | NUR ---
Per consult, rehab declined Pt. Updated Dr, plan dc to home, Pt does not have insurance for skilled.
[2019-01-07 11:56] VITALS: BP 122/78
[2019-01-07 12:56] VITALS: BP 122/78
[2019-01-07] MEDS ORDERED: TRAMADOL 50 MG50 MG PO (13:15)
--- NOTE | 2019-01-07 19:42 | NUR ---
ASSUMED PT CARE AT 0730, FULL ASSESMENT DONE CHARTED. PT A/O X4, C/O GENERALIZED "ALL OVER" PAIN, MEDS GIVEN PER MAR. PT UP TO CHAIR SEVERAL TIMES THIS SHIFT. WOUND CARE DONE, DISCHARGE PHOTOS TAKEN. ORDERS RECEIVED FOR DISCHARGE TODAY. REVIEWED INSTRUCTIONS WITH PT. SHE VERBALIZED UNDERSTANDING. PTS CENTRAL LINE REMOVED, VSS. PT LEFT WITH AT APPROX [id number]
== END 2019-01-07 15:15 | disposition home or self-care (01) | DRG 871 ==
LOC: M.ERS 09:08 → M.ICU 10:10 → M.TBA-ER 10:10 → M.ICU 11:53 → M.2W 12-31 18:45
PROVIDERS: Emergency Medicine Emergency Medical Services; Family Medicine; Internal Medicine; Internal Medicine Gastroenterology; ADMIT Internal Medicine
PROC: 02HV33Z Insertion of Infusion Device into Superior Vena Cava, Percutaneous Approach (ICD-10-PCS; principal; 2018-12-28)
PROC: 0DB98ZX Excision of Duodenum, Via Natural or Artificial Opening Endoscopic, Diagnostic (ICD-10-PCS; 2018-12-30)
PROC: 0DB68ZX Excision of Stomach, Via Natural or Artificial Opening Endoscopic, Diagnostic (ICD-10-PCS; 2018-12-30)
PROC: 30233N1 Transfusion of Nonautologous Red Blood Cells into Peripheral Vein, Percutaneous Approach (ICD-10-PCS; 2018-12-30)
DX: A41.9 Sepsis, unspecified organism (principal); K25.4 Chronic or unspecified gastric ulcer with hemorrhage; K26.4 Chronic or unspecified duodenal ulcer with hemorrhage; I85.01 Esophageal varices with bleeding; S32.502A Unspecified fracture of left pubis, initial encounter for closed fracture; N17.9 Acute kidney failure, unspecified; N39.0 Urinary tract infection, site not specified; E44.0 Moderate protein-calorie malnutrition; D62 Acute posthemorrhagic anemia; D61.818 Other pancytopenia; I10 Essential (primary) hypertension; E78.00 Pure hypercholesterolemia, unspecified; E78.5 Hyperlipidemia, unspecified; I95.9 Hypotension, unspecified; F17.210 Nicotine dependence, cigarettes, uncomplicated; R65.20 Severe sepsis without septic shock; G43.909 Migraine, unspecified, not intractable, without status migrainosus; K44.9 Diaphragmatic hernia without obstruction or gangrene; M19.011 Primary osteoarthritis, right shoulder; B96.20 Unspecified Escherichia coli [E. coli] as the cause of diseases classified elsewhere; W18.39XA Other fall on same level, initial encounter; Y93.89 Activity, other specified; Y92.89 Other specified places as the place of occurrence of the external cause; Z90.49 Acquired absence of other specified parts of digestive tract; Z87.81 Personal history of (healed) traumatic fracture; Z88.6 Allergy status to analgesic agent; Z88.0 Allergy status to penicillin; Z84.1 Family history of disorders of kidney and ureter; Z68.33 Body mass index [BMI] 33.0-33.9, adult; Y99.8 Other external cause status